=== PATIENT | female | born 1960 | race Caucasian/White ===

== ENCOUNTER 2018-11-11 05:33 | Outpatient (CLI) | payer OTHER ==
[~2018-11-11] VITALS: Ht 162.6 cm; Wt 56.2 kg
[2018-11-11] MEDS ORDERED: ALPR0.5T7 PO (11:05)
[2018-11-11] MEDS ORDERED: ESTR0.5T PO (11:05)
== END 2018-11-11 13:34 | disposition home or self-care (01) ==
LOC: PREOP 05:33 → EDBD 05:33 → PREOP 13:34
PROVIDERS: ATTEND Urology
DX: Z01.818 Encounter for other preprocedural examination (principal)

== ENCOUNTER 2018-11-17 06:51 | Day surgery (SDC) | payer OTHER ==
[~2018-11-17] VITALS: Ht 162.6 cm; Wt 56.2 kg
[2018-11-17] VITALS (14 sets, daily range): BP systolic 95–130; BP diastolic 51–74
[~2018-11-17 06:51] MED LIST: ALPR0.5T7 PO; ESTR0.5T PO
--- NOTE | 2018-11-17 07:09 | Progress Note-Pre Operative ---
Pre-Operative Progress Note H&P Reviewed The H&P was reviewed, patient examined and no changes noted. Date Seen by Provider: Nov 17, 2018 Time Seen by Provider: 07:08 Date H&P Reviewed: Nov 17, 2018 Time H&P Reviewed: 07:08 Pre-Operative Diagnosis: CYSTOCELE, MIXED INCONTINENCE, OAB, AND ISD MASHA INGRAM MD Nov 17, 2018 07:09
--- NOTE | 2018-11-17 07:10 | Progress Note-Post Operative ---
Post-Operative Progess Note Surgeon (s)/Fur Storage Clerk (s) Surgeon MASHA INGRAM MD Fur Storage Clerk: NONE Pre-Operative Diagnosis CYSTOCELE, MIXED INCONTINENCE, OAB, AND ISD Post-Operative Diagnosis SAME Procedure & Operative Findings Date of Procedure 11/17/18 Procedure Performed/Findings ANTERIOR REPAIR, PVS, AND CYSTOSCOPY Anesthesia Type GENERAL Estimated Blood Loss Estimated blood loss (mL): LESS THAN 50CC Specimens/Packing Specimens Removed NONE TO PATHOLOGY Packing: ESTRACE VAGINAL PACK MASHA INGRAM MD Nov 17, 2018 07:10
[2018-11-17] MEDS ORDERED: CATHETER FLUSH 10 ML SYR IV PRN (07:15)
[2018-11-17] MEDS ORDERED: cefTRIAXone FOR IV USE 1,000 MG in WATER (STERILE) FOR INJECTION 10 ML IV ONE (07:15)
[2018-11-17] MEDS ORDERED: HYDROcodone/APAP 10 MG/325 MG (LORTAB) TAB PO PRN (07:15)
[2018-11-17] MEDS ORDERED: LIDOCAINE/EPI 1%-1:100,000 (XYLOCAINE) 20ML ONE (07:20)
[2018-11-17] MEDS ORDERED: ESTRADIOL VAGINAL CREAM 42.5 GM (ESTRACE) VG ONE (07:20)
[2018-11-17] MEDS ORDERED: ROCURONIUM 10 MG/ML 5 ML SYRINGE IV ONE (07:28)
[2018-11-17] MEDS ORDERED: MIDAZOLAM 2 MG/2 ML (VERSED) VIAL ONE (07:28)
[2018-11-17] MEDS ORDERED: proPOfol 200 MG/20 ML (DIPRIVAN) VIAL IV ONE (07:28)
[2018-11-17] MEDS ORDERED: LIDOCAINE PF 2% 5 ML (XYLOCAINE) VIAL ONE (07:28)
[2018-11-17] MEDS ORDERED: fentaNYL INJECTION 100 MCG/2 ML AMP ONE (07:28)
[2018-11-17] MEDS ORDERED: ONDANSETRON 4 MG/2 ML (SDV) Z0FRAN ONE (07:28)
[2018-11-17] MEDS ORDERED: MIDAZOLAM 2 MG/2 ML (VERSED) VIAL IV ONE (07:30)
[2018-11-17] MEDS: LACTATED RINGERS 1,000 ML IV PRN ×3 (07:35→19:35)
[2018-11-17] MEDS ORDERED: DEXAMETHASONE 10 MG/ML (DECADRON) 1 ML VIAL ONE (08:31)
[2018-11-17] MEDS ORDERED: PHENYLEPHRINE 100 MCG/ML 10 ML (ANESTHESIA) SYR ONE (08:38)
[2018-11-17] MEDS ORDERED: NEOSTIGMINE 1 MG/ML 5 ML SYRINGE ONE (08:52)
[2018-11-17] MEDS ORDERED: GLYCOPYRROLATE 0.2 MG/ML (ROBINUL) 2 ML VIAL ONE (08:52)
[2018-11-17] MEDS: KETOROLAC 30 MG/ML VIAL IV PRN ×3 (09:10→20:52)
[2018-11-17] MEDS ORDERED: KETOROLAC 30 MG/ML VIAL ONE (09:13)
[2018-11-17] MEDS ORDERED: HYDROmorphone 2 MG/ML VIAL (DILAUDID) IV ONE (09:30)
[2018-11-17] MEDS ORDERED: ONDANSETRON 4 MG/2 ML (SDV) Z0FRAN IVP PRN (09:30)
--- NOTE | 2018-11-17 10:15 | NUR ---
Pt to room 306 via bed accompanied by PACU staff. Report rec'd bedside from Yadira Juarez RN. Introduce self to pt, discuss plan of care. Assessment completed, VS taken. IV fluids to pump, SCD's on and activated. Fresh ice water and sprite provided. Pt and family oriented to room and call light, room service. Pt denies needs or concerns at this time.
--- NOTE | 2018-11-17 10:42 | Anesthesia-General Post-Op ---
General Patient Condition Mental Status/LOC: Same as Preop Cardiovascular: Satisfactory Nausea/Vomiting: Absent Respiratory: Satisfactory Pain: Controlled Complications: Absent Post Op Complications Complications None Follow Up Care/Instructions Patient Instructions None needed. Anesthesia/Patient Condition Patient Condition Patient is doing well, no complaints, stable vital signs, no apparent adverse anesthesia problems. No complications reported per nursing. CARIE RASMUSSEN CRNA Nov 17, 2018 10:42
[2018-11-17] MEDS: LACTATED RINGERS 1,000 ML IV SCH ×2 (10:48→11:27)
--- NOTE | 2018-11-17 11:00 | NUR ---
REPORT RECEIVED FROM ASIA THRASHER.
--- NOTE | 2018-11-17 11:25 | NUR ---
VSS. CONTINUOUS SPO2 MONITORING. MAINTAINING SPO2 96-100%. DAUGHTER AT BEDSIDE.
--- NOTE | 2018-11-17 12:15 | NUR ---
VSS. VAGINAL PACKING IN PLACE. V-PAD DRY.
--- NOTE | 2018-11-17 13:00 | NUR ---
TOOK APPROX 30% OF LUNCH. CONTINUOUS SPO2 MONITORING D/C'ED.
--- NOTE | 2018-11-17 13:40 | OPERATIVE REPORT ---
DATE OF SERVICE: 11/17/2018 PREOPERATIVE DIAGNOSES: 1. Cystocele. 2. Mixed urinary incontinence with overactive bladder and intrinsic sphincter deficiency. POSTOPERATIVE DIAGNOSES: 1. Cystocele. 2. Mixed urinary incontinence with overactive bladder and intrinsic sphincter deficiency. OPERATION PERFORMED: Anterior repair with pubovaginal sling and cystoscopy. SURGEON: Champ Ingram MD. ANESTHESIA: General. COMPLICATIONS: None. DESCRIPTION OF PROCEDURE: Under satisfactory general anesthesia, the patient in extended lithotomy position, genitalia were prepped and draped in the usual sterile fashion. A Lerner catheter was inserted and the bladder was drained. A self-retaining vaginal retractor was applied. The anterior vaginal mucosa was infiltrated with lidocaine with epinephrine. An incision was made vertically in the anterior vaginal wall and mucosa was dissected free of the underlying fascia. Dissection was carried laterally and up towards the pubic arch. The fascia was approximated with interrupted 2-0 Vicryl, giving excellent support to the bladder. The Solyx device, which is a pubovaginal sling, was passed on both sides using the prescribed technique and the sling was sitting nicely under the mid urethra with no tension, no twist and passage of a curved hemostat easily between it and the underlying tissues. Lerner catheter was removed to perform cystoscopy to confirm the integrity of the bladder, ureteric orifices and urethra with no foreign body and to confirm the position of the sling under the mid urethra and to fill out the bladder half full to perform a manual Valsalva maneuver that was mildly positive after removing the cystoscope. So I went ahead and tightened the sling, which prevent the leakage. The excess vaginal mucosa was excised sharply and the vaginal mucosa was approximated with a running 2-0 Vicryl Rapide type suture. The catheter was reinserted draining clear fluid. Estrace vaginal pack was inserted. Estimated blood loss was less than 50 mL, none was replaced. The patient tolerated the procedure and anesthesia well and was sent to recovery room in stable condition. Job ID: [id number] DocumentID: [id number] Dictated Date: 11/17/2018 09:16:22 Director [employer] Date: 11/17/2018 13:39:28 Dictated By: CHAMP INGRAM MD
--- NOTE | 2018-11-17 15:16 | NUR ---
LORTAB 1 TAB P.O. FOR C/O ABD/PELVIC PAIN/PRESSURE.
--- NOTE | 2018-11-17 17:30 | NUR ---
PT REQUESTING NOT TO HAVE HYDROCODONE R/T PREVIOUS EXPERIENCE WITH NOT BEING ABLE TO SLEEP. STATES FEELS FINE AT THIS TIME AND IS PAIN FREE.
--- NOTE | 2018-11-17 17:54 | NUR ---
DR. INGRAM NOTIFIED OF PT'S REQUEST FOR PERCOCET INSTEAD OF LORTAB. ORDER RECEIVED.
--- NOTE | 2018-11-17 18:30 | NUR ---
LARGE AMOUNT OF DILUTE PALE YELLOW URINE THIS SHIFT. TAKING P.O. FLUIDS WELL. FAMILY AT BEDSIDE. OFFERS NO COMPLAINTS AT THIS TIME.
[2018-11-17] MEDS: ALPRAZolam 0.5 MG (XANAX) TAB PO PRN (20:51)
[2018-11-17] MEDS: oxyCODONE/APAP 5/325MG (PERCOCET 5) TABLET PO PRN (20:51)
[2018-11-17] MEDS: ESTRADIOL 1 MG TAB (ESTRACE) PO SCH (20:52)
--- NOTE | 2018-11-17 23:00 | NUR ---
Pt sleeping, easily aroused, assisted with position change.
[2018-11-18 00:31] VITALS: BP 95/48
[2018-11-18] MEDS: KETOROLAC 30 MG/ML VIAL IV PRN ×4 (02:45→21:39)
[2018-11-18 04:34] VITALS: BP 90/50
[2018-11-18] MEDS: oxyCODONE/APAP 5/325MG (PERCOCET 5) TABLET PO PRN ×2 (04:34→08:46)
[2018-11-18] MEDS: LACTATED RINGERS 1,000 ML IV SCH (06:41)
[2018-11-18] MEDS ORDERED: LEVOFLOXACIN 250 MG/50 ML IVPB 50 ML IV SCH (07:10)
--- NOTE | 2018-11-18 08:30 | NUR ---
Pt assisted up to bathroom, +void. 100ml clear, yellow urine noted. Pericare performed and fresh vpad and underwear applied. Pt voices it was difficult to start urinating and is unsure if she completely emptied her bladder. Bladder scan performed, 281ml noted. Dr. Cuevas called to verify if straight cath is desired, order rec'd to straight cath if residual is greater than 200ml post void. Straight cath performed under sterile technique, approx 400ml clear yellow urine obtained. Pt tolerates procedure well. Pericare performed. Pt desires to rest at this time. Encouraged to call after next void for post void residual scan.
[2018-11-18 08:44] VITALS: BP 115/53
[2018-11-18] MEDS: ALPRAZolam 0.5 MG (XANAX) TAB PO PRN ×2 (08:46→21:39)
--- NOTE | 2018-11-18 11:30 | NUR ---
Dr. Cuevas here to see pt. No new orders rec'd, cont. with current plan of care.
--- NOTE | 2018-11-18 11:52 | Progress Note-Urology ---
Progress Note-Urology Progress Notes/Assess & Plan Progress/Assessment & Plan DOING, LOOKING, AND FEELING WELL. VOIDED ONCE WITH PVR. DRY. HAPPY. OBSERVE. Final Diagnosis MIXED INCONTINENCE, OAB, ISD, AND CYSTOCELE MASHA INGRAM MD Nov 18, 2018 11:52
[2018-11-18 12:30] VITALS: BP 117/59
--- NOTE | 2018-11-18 12:30 | NUR ---
Pt voids 250ml clear yellow urine, voices she does not feel like she emptied. Bladder scan performed, 300ml residual noted. Straight cath performed under sterile technique, 375ml clear yellow urine obtained. Pericare performed. Pt tolerated well. Pt desires to rest at this time. Encouraged to call Rn with next void.
--- NOTE | 2018-11-18 15:00 | NUR ---
Pt voided 75ml clear yellow urine. Voices she doesn't feel like she emptied, but is not uncomfortable. Bladder scan performed, 193ml residual noted. Dr. Cuevas called and notified of latest void and residual, pt c/o more discomfort with urination. Order rec'd for pyridium 200mg TID, keep pt overnight.
[2018-11-18] MEDS: PHENAZOPYRIDINE 100 MG (PYRIDIUM) TABLET PO SCH ×2 (15:56→21:40)
[2018-11-18 16:15] VITALS: BP 112/57
--- NOTE | 2018-11-18 16:15 | NUR ---
Pt void 350ml clear yellow urine, states she does not feel like she completely emptied. Bladder scan performed, 398ml noted residual. Straight cath performed under sterile technique, 550ml clear, yellow urine obtained. Pt tolerates procedure well. Pericare performed.
--- NOTE | 2018-11-18 18:30 | NUR ---
Pt up to void, 100ml clear dark yellow urine noted. Bladder scan performed, 190ml residual noted.
[2018-11-18 20:30] VITALS: BP 123/65
--- NOTE | 2018-11-18 20:30 | NUR ---
Pt. up to void. 270ml of jakob urine in hat. Pt. then walked the hallways with nurse assist and is back to bed at this point.
--- NOTE | 2018-11-18 20:35 | NUR ---
Pt. back to bed and bladder scanned. Bladder scanner shows 174ml or urine left in bladder. Pt. states that she does not feel uncomfortable at this time. She states that she wants to walk again at 2130 and try to void again after meds.
[2018-11-18] MEDS: ESTRADIOL 1 MG TAB (ESTRACE) PO SCH (21:40)
--- NOTE | 2018-11-18 21:40 | NUR ---
Nurse at pt bedside. Pt in bathroom attempting to void. Pt. voids 300ml into hat. Bladder scanner shows 439ml of urine left in bladder at this time. Pt states that she is now feeling uncomfortable. Pt. straight cathed at this time with 700ml of output. Pt states that she feels a lot of relief afterwards. Pt up and walking hallways at this time.
--- NOTE | 2018-11-19 02:00 | NUR ---
Nurse called to pt bedside after pt voided on toilet. 225ml of clear, yellow urine in hat. Pt. bladder scanned at this time. Bladder scanner showed 43ml of urine still in bladder. Pt. states that she feels no discomfort at this time.
[2018-11-19 02:06] VITALS: BP 108/62
[2018-11-19] MEDS: KETOROLAC 30 MG/ML VIAL IV PRN (05:02)
--- NOTE | 2018-11-19 05:05 | NUR ---
Nurse at pt bedside. Pt. up to bathroom at this time and voided 250ml of jakob urine in hat. Bladder scan shows 76ml of residual urine. Pt states that she feels like she has emptied her bladder and is in no discomfort at this time.
[2018-11-19 05:09] VITALS: BP 105/61
--- NOTE | 2018-11-19 06:15 | NUR ---
Pt. up walking in halls. States that she was able to void again. Pt. had 300ml out in hat. Bladder scan shows a residual of 178ml. Pt. is comfortable at this time and wants to get back up to start walking again.
[2018-11-19 07:50] VITALS: BP 122/62
--- NOTE | 2018-11-19 08:46 | Discharge Inst-Urology ---
Discharge Inst-Urology Discharge Medications New, Converted, or Re-newed RX: RX on Chart Patient Instructions/Follow Up Plan Please make appointment to been seen in office in 1 week Showers, no bath Keep bowels soft and moving REST Increase oral fluids for 48 hours and then as needed. Diet and Activity as tolerated. If questions or concerns contact your physician Or seek help at emergency department. MASHA INGRAM MD Nov 19, 2018 08:46
--- NOTE | 2018-11-19 12:33 | NUR ---
CM/SS WS called and stated that this patient is now in need of HHC. Called Dr. Cuevas and he will change DC Instructions to reflect HHC and not home self-care. HHC will then be arranged with the patient.
--- NOTE | 2018-11-19 13:08 | D/C HH Face to Face Order ---
D/C Face to Face Orders Instructions for Patient Via [facility] Medium, Patient Instructions/FollowUp: REST TILL SEE ME IN ONE WEEK SCHEDULED Physician to follow Patient: DR INGRAM Discharge Diet for Home: Regular Diet Patient Data-Allergies,Ht & Wt Patient Allergies: Coded Allergies: Sulfa (Sulfonamide Antibiotics) (Verified Allergy, Unknown, 11/11/18) Height (Feet): 5 Height (Inches): 4.00 Weight (Pounds): 124 Weight (Ounces): 0.0 Home Health Need/Face to Face Date of Face to Face: Nov 19, 2018 Clinical Findings: Other-list in note (POST OP URINE RETENTION) I have seen Pt [id number]: Yes Discharged To: Home Diagnosis/Conditions: URINE RETENTION POST OPERATIVE PAIN NEED FOR PVR CHECK DAILY AND VS CHECK Patient is Homebound due to: Pain w/ambulation Homebound Status Due to the above stated illness, injury or surgical procedure (medical condition or diagnosis) and associated clinical findings, the patient is homebound because of his/her inability to leave home except with aid of a supportive device and/or person AND leaving the home requires a considerable and taxing effort or is medically contraindicated. Pt req the following assistanc: Aid of another person Home Health Nursing Orders Home Health Services Order: Nursing Services DAILY PVR CHECK UNTIL LESS THAN 100 CC Home Health Infusion Therapy Line Start Date: Nov 17, 2018 Certify Stmt I certify that this patient is under my care and that I, a nurse practitioner or a physician; a assistant coach working with me, had a face to face encounter that - meets the physician face to face encounter requirements with this patient as dated. MASHA INGRAM MD Nov 19, 2018 13:08
--- NOTE | 2018-11-19 13:43 | NUR ---
CM/SS spoke with patient for [facility] set up. Dena Guidry sent referral they can do the straight cath daily to check for residual. They will contact the patient to set up intake. Patient updated. Addendum: 11/19/18 at 1503 by ROCÍO MAY Birdie [facility] called back and stated they are not in network with the [employer]. [facility] in [place] will not do daily care needs. Zenia [facility] will see the patient, they are in network and will do the daily straight cath. Patient called again to update.
== END 2018-11-19 10:00 | disposition home health service (06) ==
LOC: SDC 06:51 → WS 10:17 → SDC 11-19 10:00
PROVIDERS: ATTEND Urology
DX: N81.10 Cystocele, unspecified (principal); N36.42 Intrinsic sphincter deficiency (ISD); N39.46 Mixed incontinence; N32.81 Overactive bladder; F41.9 Anxiety disorder, unspecified; Z79.899 Other long term (current) drug therapy
CPT/HCPCS: 87081; 94664

== ENCOUNTER 2019-04-25 05:41 | Outpatient (CLI) | payer OTHER ==
[~2019-04-25] VITALS: Ht 162.6 cm; Wt 55.9 kg
== END 2019-04-25 12:38 | disposition home or self-care (01) ==
LOC: PREOP 05:41
PROVIDERS: ATTEND Surgery
DX: Z01.818 Encounter for other preprocedural examination (principal)

== ENCOUNTER 2019-05-02 06:47 | Day surgery (SDC) | payer OTHER ==
[2019-05-02] MEDS ORDERED: LACTATED RINGERS 1,000 ML IV ONE (06:59)
[2019-05-02] MEDS ORDERED: MIDAZOLAM 2 MG/2 ML (VERSED) VIAL ONE (07:22)
[2019-05-02] MEDS ORDERED: PROPOFOL INJECTION 50 ML IV ONE ×2 (07:22→08:24)
[2019-05-02] MEDS ORDERED: LACTATED RINGERS 1,000 ML IV STA (07:27)
[2019-05-02 07:29] VITALS: BP 132/73
[2019-05-02 08:40] VITALS: BP 108/54
--- NOTE | 2019-05-02 08:44 | Progress Note-Post Operative ---
Post-Operative Progess Note Surgeon (s)/Maintenance Department Technician (s) Surgeon JANES CHOI DO Maintenance Department Technician: Jean-Claude Smith MSIII Pre-Operative Diagnosis HX of Polyp, surveillance colonoscopy Post-Operative Diagnosis Polyps Int Hemorrhoids Procedure & Operative Findings Date of Procedure 05/02/19 Procedure Performed/Findings colon with snare colon with hot bx Anesthesia Type IV sedation by DISTRIBUTOR OF DIRECTORIES Estimated Blood Loss Estimated blood loss (mL): scant Specimens/Packing Specimens Removed cecal polyp asc colon polyp AJNES CHOI DO May 02, 2019 08:44 POS
[2019-05-02 08:45] VITALS: BP 101/55
--- NOTE | 2019-05-02 08:45 | Endoscopy Discharge Instruct ---
Endo Procedure/Findings Findings 1.: Polyp 2.: Internal Hemorrhoids Discharge Instructions - Activity: You might feel a little sleepy until tomorrow. This is due to the medicine you received to relax you. Until tomorrow, you should: NOT drive a car, operate machinery or power tools. NOT drink any alcoholic beverages. NOT make any important decisions or sign importortant papers. Do not return to work until tomorrow, unless otherwise instructed. Resume previous activities tomorrow. Diet: Start by taking liquids. If you tolerate liquids, advance to solid food. make an appointment for one week 1.: Colonoscopy in 1 year Notify Physician - If you experience excessive bleeding, unusual abdominal pain, fever, or chest pain, contact your doctor immediately. JANES CHOI DO May 02, 2019 08:45 POS
[2019-05-02 08:50] VITALS: BP 101/55
[2019-05-02 09:15] VITALS: BP 104/63
[2019-05-02 10:34] VITALS: BP 104/63
--- NOTE | 2019-05-02 11:52 | Anesthesia-General Post-Op ---
MAC Patient Condition Mental Status/LOC: Same as Preop Cardiovascular: Satisfactory Nausea/Vomiting: Absent Respiratory: Satisfactory Pain: Controlled Complications: Absent Post Op Complications Complications None Follow Up Care/Instructions Patient Instructions None needed. Anesthesiology Discharge Order Discharge Order Patient is doing well, no complaints, stable vital signs, no apparent adverse anesthesia problems. No complications reported per nursing. HO WINKLER CRNA May 02, 2019 11:52 POS
--- NOTE | 2019-05-02 13:11 | OPERATIVE REPORT ---
DATE OF SERVICE: 05/02/2019 PREOPERATIVE DIAGNOSES: Surveillance colonoscopy, history of polyps. POSTOPERATIVE DIAGNOSES: 1. Colon polyps. 2. Internal hemorrhoids. PROCEDURES: 1. Colonoscopy with snare polypectomy. 2. Colonoscopy with hot biopsy. SURGEON: Bubba Esocbar DO TRAFFIC OBSERVER: Jean-Claude Smith, MS3 SPECIMEN: Polyp from the cecum and then one polyp from ascending colon. BLOOD LOSS: Scant. FLUIDS: Per anesthesia. POSTOPERATIVE CONDITION: Stable. INDICATION FOR PROCEDURE: The patient is a 59-year-old female, who has a history of colon polyps, needed a surveillance colonoscopy. FINDINGS: The patient had one polyp in the cecum, which was flat and long, taken in pieces to remove it all. She also had a small polyp in the ascending colon and she had some internal hemorrhoids. PROCEDURE NOTE: After informed consent was obtained, the patient was brought to the endoscopy suite and placed in the bed in left lateral decubitus position. She was administered IV sedation by the ARCHERY EQUIPMENT REPAIRER, who then monitored his vitals the entire time, heart rate, blood pressure and pulse ox and the scope was inserted, pushed all the way to about 130 cm, able to get all the way to cecum, took a picture of appendiceal orifice and then right next to the appendiceal orifice, noted a long flat polyp, elected to do a snare polypectomy of this, able to get some of this up. It was very flat and had a hard time getting all of it up and it was bleeding a little bit, so elected to put in a hot polyp biopsy, able to take the rest of the flat polyp out with hot biopsy and then cauterized the edges with biopsy forceps. Once able to remove this and stop the bleeding, then noted ileocecal valve, slowly withdrew the scope insufflating to look circumferentially at the faulkner looking at the cecum, up the ascending colon. In the ascending colon, saw a small flat polyp. It was very small, so we were able to get almost all with hot biopsy and then continued up to the hepatic flexure, then down the transverse colon, the splenic flexure, into the descending colon down to the sigmoid and finally into the rectum, retroflexed in the rectal vault, saw some hemorrhoids, took a picture of this and then removed the scope. The patient tolerated the procedure and was recovered in endoscopy suite. Job ID: [id number] DocumentID: [id number] Dictated Date: 05/02/2019 08:43:21 Direct Marketing Manager Date: 05/02/2019 13:10:29 Dictated By: BUBBA ESCOBAR DO
== END 2019-05-02 09:30 | disposition home or self-care (01) ==
LOC: ENDO 06:47
PROVIDERS: ATTEND Surgery
DX: Z12.11 Encounter for screening for malignant neoplasm of colon (principal); D12.0 Benign neoplasm of cecum; D12.2 Benign neoplasm of ascending colon; K64.8 Other hemorrhoids; F41.9 Anxiety disorder, unspecified; Z86.010 Personal history of colon polyps; Z88.2 Allergy status to sulfonamides; Z87.891 Personal history of nicotine dependence; Z79.52 Long term (current) use of systemic steroids; Z79.899 Other long term (current) drug therapy; Z90.710 Acquired absence of both cervix and uterus; Z82.49 Family history of ischemic heart disease and other diseases of the circulatory system
CPT/HCPCS: 88305